=== PATIENT | female | born 1950 | race Native Hawaiian/Other Pacific Islander ===

== ENCOUNTER 2016-11-29 08:31 | Outpatient (CLI) | payer OTHER ==
[~2016-11-29 08:31] MED LIST: AMIT10TA21 PO; AMITRIPTYLIN50 MG OR; DIVA500T PO; GLUCOPHAGE1000 MG PO; SEROQUEL200 MG OR; SIMV40TA57
[2016-11-29 09:03] LABS: POTASSIUM 4.2 mmol/L (3.6-5.2); SODIUM 138 mmol/L (136-145)
== END 2016-11-29 19:22 | disposition home or self-care (01) ==
LOC: LABW 08:31
DX: Z79.899 Other long term (current) drug therapy (principal); E78.4 Other hyperlipidemia; Z51.81 Encounter for therapeutic drug level monitoring
CPT/HCPCS: 36415; 80053; 80061; 84443

== ENCOUNTER 2016-12-29 15:31 | Outpatient (CLI) | payer OTHER ==
[2016-12-29 16:01] LABS: PLATELET COUNT 176 K/uL (152-353)
[2016-12-29 16:09] LABS: POTASSIUM 4.6 mmol/L (3.6-5.2)
== END 2016-12-29 19:34 | disposition home or self-care (01) ==
LOC: LAB 15:31
PROVIDERS: Nurse Practitioner Family
DX: Z00.00 Encounter for general adult medical examination without abnormal findings (principal); E11.9 Type 2 diabetes mellitus without complications; I10 Essential (primary) hypertension; E78.4 Other hyperlipidemia; R53.81 Other malaise; Z79.899 Other long term (current) drug therapy; E55.9 Vitamin D deficiency, unspecified; Z51.81 Encounter for therapeutic drug level monitoring
CPT/HCPCS: 80053; 80061; 82306; 82607; 83036; 84436; 84443; 85027

== ENCOUNTER 2017-01-11 09:14 | Outpatient (CLI) | payer OTHER | END 2017-01-11 19:29 | disposition home or self-care (01) | LOC: MAMMO 09:14 | DX: Z12.31 Encounter for screening mammogram for malignant neoplasm of breast (principal); Z78.0 Asymptomatic menopausal state; M15.8 Other polyosteoarthritis | CPT/HCPCS: G0202-TC ==

== ENCOUNTER → 2018-01-17 13:33 | Outpatient (CLI) | payer OTHER | END | disposition home or self-care (01) | LOC: AMB 13:33 | DX: H57.12 Ocular pain, left eye (principal) ==

== ENCOUNTER 2018-01-17 13:55 | Emergency (ER) | payer OTHER ==
[~2018-01-17] VITALS: Ht 157.5 cm; Wt 67.1 kg
[2018-01-17 14:05] VITALS: TEMP 97.7
[2018-01-17 15:52] VITALS: BP 128/75
== END 2018-01-17 15:54 | disposition home or self-care (01) ==
LOC: ED 13:55
DX: S00.83XA Contusion of other part of head, initial encounter (principal); S09.8XXA Other specified injuries of head, initial encounter; W01.198A Fall on same level from slipping, tripping and stumbling with subsequent striking against other object, initial encounter; Y92.89 Other specified places as the place of occurrence of the external cause
CPT/HCPCS: 99283

== ENCOUNTER 2018-02-01 10:09 | Outpatient (CLI) | payer OTHER | END 2018-02-01 20:02 | disposition home or self-care (01) | LOC: RAD 10:09 | DX: M79.642 Pain in left hand (principal) ==

== ENCOUNTER 2019-01-29 13:31 | Outpatient (CLI) | payer OTHER | END 2019-01-29 13:40 | disposition short-term general hospital (02) | LOC: AMB 13:31 | DX: R53.1 Weakness (principal); R55 Syncope and collapse; R42 Dizziness and giddiness | CPT/HCPCS: A0425; A0427 ==

== ENCOUNTER 2019-01-29 13:46 | Emergency (ER) | payer OTHER ==
[~2019-01-29] VITALS: Ht 157.5 cm; Wt 67.1 kg
[2019-01-29 13:47] VITALS: BP 152/75; TEMP 97.7
[2019-01-29 14:30] LABS: PLATELET COUNT 171 K/uL (152-353)
[2019-01-29 14:44] LABS: POTASSIUM 4.5 mmol/L (3.6-5.2)
== END 2019-01-29 15:59 | disposition home or self-care (01) ==
LOC: ED 13:46
PROVIDERS: Emergency Medicine
DX: N39.0 Urinary tract infection, site not specified (principal)
CPT/HCPCS: 36415; 80053; 81000; 85027; 93005; 99283; 99284

== ENCOUNTER 2019-02-27 12:29 | Outpatient (CLI) | payer OTHER | END 2019-02-27 23:29 | disposition home or self-care (01) | LOC: LABW 12:29 | DX: R55 Syncope and collapse (principal); R00.0 Tachycardia, unspecified; Z51.81 Encounter for therapeutic drug level monitoring | CPT/HCPCS: 36415; 82550; 83735; 84484; 85610 ==

== ENCOUNTER 2019-03-20 07:16 | Outpatient (CLI) | payer OTHER ==
[~2019-03-20] VITALS: Ht 2.5 cm; Wt 0.0 kg
== END 2019-03-20 23:13 | disposition home or self-care (01) ==
LOC: NM 07:16
DX: R09.89 Other specified symptoms and signs involving the circulatory and respiratory systems (principal); R06.02 Shortness of breath; R07.89 Other chest pain
CPT/HCPCS: 93306; A9500; J2785

== ENCOUNTER 2019-05-14 14:18 | Outpatient (CLI) | payer OTHER | END 2019-05-14 19:40 | disposition home or self-care (01) | LOC: RAD 14:18 | DX: I10 Essential (primary) hypertension (principal) ==

== ENCOUNTER 2020-01-30 08:29 | Outpatient (CLI) | payer OTHER | END 2020-01-30 21:45 | disposition home or self-care (01) | LOC: RAD 08:29 | DX: I10 Essential (primary) hypertension (principal); E11.9 Type 2 diabetes mellitus without complications; E78.49 Other hyperlipidemia; R05 Cough ==

== ENCOUNTER 2020-02-06 14:47 | Emergency (ER) | payer OTHER ==
[~2020-02-06] VITALS: Ht 154.9 cm; Wt 68.0 kg
[2020-02-06 14:47] VITALS: BP 101/61; TEMP 98.9
[2020-02-06 15:41] LABS: PLATELET COUNT 277 K/uL (152-353)
[2020-02-06 15:53] LABS: POTASSIUM 5.4 mmol/L (3.6-5.2)
== END 2020-02-06 20:14 | disposition home or self-care (01) ==
LOC: ED 14:47 → MED/SURG 18:52 → ED 18:52
PROVIDERS: Emergency Medicine
PROC: 0D9670Z Drainage of Stomach with Drainage Device, Via Natural or Artificial Opening (ICD-10-PCS; principal; 2020-02-06)
DX: K56.609 Unspecified intestinal obstruction, unspecified as to partial versus complete obstruction (principal); Z53.29 Procedure and treatment not carried out because of patient's decision for other reasons
CPT/HCPCS: 43754; 80053; 82150; 83690; 85027; 96374; 96375; 99284; J1885; J2405

== ENCOUNTER 2020-06-11 14:05 | Outpatient (CLI) | payer OTHER | END 2020-06-11 23:27 | disposition home or self-care (01) | LOC: LAB 14:05 | DX: L63.8 Other alopecia areata (principal) | CPT/HCPCS: 82306; 82626; 82728; 83540; 83550; 84270; 84402; 84403; 86038 ==

== ENCOUNTER 2020-12-03 17:23 | Emergency (ER) | payer OTHER ==
[~2020-12-03] VITALS: Ht 154.9 cm; Wt 68.0 kg
[2020-12-03 17:30] VITALS: TEMP 98.2
[2020-12-03 20:10] VITALS: BP 128/72
== END 2020-12-03 20:30 | disposition home or self-care (01) ==
LOC: ED 17:23
DX: S22.42XA Multiple fractures of ribs, left side, initial encounter for closed fracture (principal); W18.39XA Other fall on same level, initial encounter; Y92.89 Other specified places as the place of occurrence of the external cause
CPT/HCPCS: 96372; 99283; J1885

== ENCOUNTER 2021-02-14 13:38 | Emergency (ER) | payer OTHER ==
[~2021-02-14] VITALS: Ht 154.9 cm; Wt 68.0 kg
[2021-02-14 13:49] VITALS: TEMP 97.5
[2021-02-14 14:20] VITALS: BP 148/60
== END 2021-02-14 14:19 | disposition home or self-care (01) ==
LOC: ED 13:38
DX: S51.811A Laceration without foreign body of right forearm, initial encounter (principal); W18.49XA Other slipping, tripping and stumbling without falling, initial encounter; Y92.89 Other specified places as the place of occurrence of the external cause
CPT/HCPCS: 99283

== ENCOUNTER 2021-02-16 08:33 | Emergency (ER) | payer OTHER ==
[~2021-02-16] VITALS: Ht 154.9 cm; Wt 68.0 kg
[2021-02-16 08:39] VITALS: BP 149/88; TEMP 97.9
== END 2021-02-16 09:02 | disposition home or self-care (01) ==
LOC: ED 08:33
DX: S51.811D Laceration without foreign body of right forearm, subsequent encounter (principal); Z48.00 Encounter for change or removal of nonsurgical wound dressing; W18.49XD Other slipping, tripping and stumbling without falling, subsequent encounter
CPT/HCPCS: 99282

== ENCOUNTER 2022-03-01 12:01 | Emergency (ER) | payer OTHER ==
[~2022-03-01] VITALS: Ht 154.9 cm; Wt 63.5 kg
[2022-03-01 12:20] VITALS: TEMP 98.7
[2022-03-01 13:43] LABS: PLATELET COUNT 200 K/uL (152-353)
[2022-03-01 14:04] LABS: POTASSIUM 4.2 mmol/L (3.6-5.2)
[2022-03-01 14:46] VITALS: BP 167/73
== END 2022-03-01 14:47 | disposition home or self-care (01) ==
LOC: ED 12:01
PROVIDERS: Emergency Medicine Emergency Medical Services
DX: R09.1 Pleurisy (principal)
CPT/HCPCS: 36415; 80048; 84484; 85027; 85379; 93005; 96360; 96374; 96375; 99284; J2930

== ENCOUNTER 2022-07-04 16:06 | Emergency (ER) | payer OTHER ==
[~2022-07-04] VITALS: Ht 154.9 cm; Wt 76.2 kg
[2022-07-04 16:06] VITALS: TEMP 98.9
[2022-07-04 20:19] LABS: PLATELET COUNT 200 K/uL (152-353)
[2022-07-04 20:24] LABS: POTASSIUM 4.4 mmol/L (3.6-5.2)
[2022-07-04 20:40] VITALS: BP 168/86
== END 2022-07-04 20:40 | disposition short-term general hospital (02) ==
LOC: ED 16:06
PROVIDERS: Family Medicine
PROC: 2W38X1Z Immobilization of Right Upper Extremity using Splint (ICD-10-PCS; principal; 2022-07-04)
DX: S02.31XA Fracture of orbital floor, right side, initial encounter for closed fracture (principal); S42.401A Unspecified fracture of lower end of right humerus, initial encounter for closed fracture; S00.81XA Abrasion of other part of head, initial encounter; W01.0XXA Fall on same level from slipping, tripping and stumbling without subsequent striking against object, initial encounter; Y92.89 Other specified places as the place of occurrence of the external cause
CPT/HCPCS: 36415; 80053; 85027; 85610; 99285

== ENCOUNTER 2022-09-20 10:53 | Emergency (ER) | payer OTHER ==
[~2022-09-20] VITALS: Ht 154.9 cm; Wt 76.2 kg
[2022-09-20 12:20] VITALS: BP 157/76; TEMP 98
== END 2022-09-20 12:20 | disposition home or self-care (01) ==
LOC: ED 10:53
DX: M79.671 Pain in right foot (principal); L03.115 Cellulitis of right lower limb
CPT/HCPCS: 99283